=== PATIENT | female | born 1990 | race Caucasian/White ===

== ENCOUNTER 2016-07-13 12:43 | Emergency (ER) | payer BC ==
[~2016-07-13] VITALS: Ht 157.5 cm; Wt 69.7 kg
[~2016-07-13 12:43] MED LIST: DICY20TA10 PO; PRENTAB65 PO; ZNTT/150 PO
[2016-07-13 12:46] VITALS: TEMP 36.5; Ht 157.5 cm; Wt 69.7 kg
[2016-07-13] MEDS ORDERED: BCPILLS PO (12:57)
[2016-07-13] MEDS ORDERED: ONDANSETRON INJ 2 MG/ML 2 ML VIAL IV STA (13:06)
[2016-07-13] MEDS ORDERED: MoRPHine SULFATE 10 MG/ML CARP/VIAL IV STA (13:06)
[2016-07-13] MEDS ORDERED: SODIUM CHLORIDE 0.9% 1000ML 1,000 ML IV STA (13:06)
[2016-07-13] MEDS ORDERED: MoRPHine SULFATE 4 MG/ML 1 ML CARP\\VIAL ONE (13:10)
[2016-07-13] MEDS ORDERED: MoRPHine SULFATE 2 MG/ML CARP ONE (13:10)
[2016-07-13 13:20] LABS: BASO % 0.4 %; BASO ABS # 0.03 K/uL (0-0.2); COMPLETE YES; EOS % 1.7 %; HEMATOCRIT 42.2 % (37-47); IG% 0.2 %; LYMPH % 40.3 %; LYMPH ABS # 3.34 K/uL (1.2-3.4); MEAN CELL VOLUME 86.1 fL (80-100); MEAN CORPUSCULAR HEMOGLOBIN 29.4 pg (25-34); MEAN CORPUSCULAR HGB CONC 34.1 g/dl (32-36); MEAN PLATELET VOLUME 9.8 fL (7.4-10.4); MONO % 6.2 %; NEUT % 51.2 %; PLATELET COUNT 390 K/uL (130-400); WHITE BLOOD COUNT 8.28 K/uL (4.8-10.8)
[2016-07-13 13:28] LABS: BUN/CREATININE RATIO 11.7 (10-20); CALCIUM 9.4 mg/dl (8.5-10.1); CREATININE 0.92 mg/dl (0.60-1.20); POTASSIUM 3.7 mmol/L (3.5-5.1)
[2016-07-13 13:53] LABS: URINE APPEARANCE CLOUDY (CLEAR); URINE BILIRUBIN NEG (NEG); URINE COLOR YELLOW; URINE EPITHELIAL CELL AUTO >30 /lpf (0-5); URINE NITRITE NEG (NEG); URINE SPECIFIC GRAVITY 1.021 (1.000-1.030); UROBILINOGEN NEG (NEG); ZZUR CULT IF INDIC CLEAN CATCH YES
[2016-07-13 14:09] LABS: MANUAL MICROSCOPIC REQUIRED? NO; REVIEW REQ? YES; SULFASALICYLIC ACID NEG (NEG)
--- NOTE | 2016-07-13 14:10 | DIAGNOSTIC IMAGING REPORT ---
CT SCAN OF THE ABDOMEN AND PELVIS WITHOUT IV CONTRAST CLINICAL HISTORY: Left flank pain. Nausea. COMPARISON STUDY: Abdominal CT dated 11/29/2009. TECHNIQUE: CT scan of the abdomen and pelvis is performed from the lung bases to the proximal femora. Images are reviewed in the axial, sagittal, and coronal planes. IV contrast was not administered for this examination. Automated dose control exposure was utilized. CT DOSE: 354.98 mGy.cm FINDINGS: Lung bases: The heart is normal in size and without pericardial effusion. The lung bases are clear. Liver: The unenhanced liver is normal in size, contour, and attenuation. There is no intrahepatic biliary ductal dilatation. Gallbladder: Unremarkable. Spleen: Normal in size and attenuation. Pancreas: Unremarkable. Adrenal glands: Unremarkable. Kidneys: The unenhanced kidneys are normal in size. There is a 6 mm obstructing calculus at the left vesicoureteral junction seen on axial image #408. This causes mild to moderate left hydroureteronephrosis. No additional calculi are identified in either kidney. There is no right-sided hydronephrosis. There is no evidence of contour deforming renal mass lesion. Abdominal vasculature: The abdominal aorta is normal in course and caliber. Bowel: The small bowel and colon are normal in course and caliber. The appendix is partially imaged and grossly normal. Peritoneum: There is no intraperitoneal free air or abdominal ascites. There is a small fat-containing umbilical hernia. Lymphadenopathy: None. Pelvic viscera: The bladder, uterus, and adnexa are normal as visualized. There is trace free fluid in the cul-de-sac. Skeletal structures: No lytic or blastic lesions are seen. IMPRESSION: 1. There is a 6 mm obstructing calculus identified at the left vesicoureteral junction. This causes mild to moderate left hydroureteronephrosis. 2. No additional calculi are identified in either kidney. 3. There is trace and likely physiologic free fluid in the cul-de-sac. Electronically signed by: Mika Steele M.D. 07/13/2016 2:08 PM Dictated Date/Time: 07/13/2016 1:43 PM
[2016-07-13] MEDS ORDERED: TAMS0.4C38 PO (14:35)
[2016-07-13] MEDS ORDERED: HYDR-5688 PO (14:35)
--- NOTE | 2016-07-13 14:36 | EMERGENCY ROOM VISIT NOTE ---
History First contact with patient: 12:54 Chief Complaint: FLANK PAIN Stated Complaint: BAD PAIN ON L SIDE History of Present Illness The patient is a 26 year old female who presents to the Emergency Room with complaints of severe pain in her left side. She states the pain began suddenly approximately one and half hours ago. She reports the pain is in her left back and radiates into the left side. She reports associated nausea, but no vomiting. She has no abdominal pain. She has urinary urgency, but denies any blood in the urine or dysuria. The patient does have a history of kidney stones. She states she has not had a stone for 7 years. She does not have a local urologist. She rates her discomfort a 9/10. She is not taken anything for the pain. She denies any fevers/chills, chest pain or shortness of breath. She denies any changes in bowel movements. Review of Systems A complete 10-point Review of Systems was discussed with the patient, with pertinent positives and negatives listed in the History of Present Illness. All remaining Review of Systems questions can be considered negative unless otherwise specified. Past Medical/Surgical History Medical Problems: (1) heart deceleration (2) First trimester (3) Irregular uterine contractions (4) Kidney stone (5) LLQ abdominal pain (6) with 10 completed weeks gestation (7) with 34 completed weeks gestation (8) with 38 completed weeks gestation (9) with 41 completed weeks gestation (10) Supervision of other normal (11) Urinary tract infection symptoms Family History Patient reports no known family medical history. Social History Smoking Status: Never Smoker Alcohol Use: none Marital Status: in relationship Occupation Status: unemployed Current/Historical Medications Scheduled Control Pills ( Control Pills), 1 TAB PO DAILY Dicyclomine Hcl (Dicyclomine Hcl), 20 MG PO QID Ondasetron Odt (Zofran Odt), 4 MG SL Q6H Ranitidine (Zantac), 150 MG PO DAILY Tamsulosin Hcl (Flomax), 0.4 MG PO DAILY Scheduled PRN Hydrocodone/Acetaminophen 5MG/325MG (Derby 5MG/325MG), 1-2 TABLET PO Q4H PRN for Pain Allergies Coded Allergies: Amoxicillin (Verified Allergy, Intermediate, rash, 07/13/16) Aspartame (Verified Allergy, Intermediate, HIVES, 07/13/16) Guaifenesin (Verified Allergy, Intermediate, HIVES, 07/13/16) Penicillins (Verified Allergy, Unknown, 07/13/16) Physical Exam Vital Signs Date Time Temp Pulse Resp B/P Pulse Ox O2 Delivery O2 Flow Rate FiO2 07/13/16 15:15 63 15 111/64 99 07/13/16 14:18 56 14 103/73 100 Room Air 07/13/16 12:46 36.5 79 18 135/77 99 Room Air Physical Exam VITALS: Vitals are noted on the nurse's note and reviewed by myself. Vital signs stable. GENERAL: This is a 26-year-old female, in no acute distress, nondiaphoretic, well-developed well-nourished. SKIN: Capillary reflex less than 2 seconds. HEART: Regular rate and rhythm without murmurs gallops or rubs. LUNGS: Clear to auscultation bilaterally without wheezes, rales or rhonchi. ABDOMEN: Positive bowel sounds x 4. Soft, nontender to palpation. MUSCULOSKELETAL: Left CVA tenderness. NEURO: Patient was alert and oriented to person place and time. Medical Decision & Procedures ER Provider Diagnostic Interpretation: CT SCAN OF THE ABDOMEN AND PELVIS WITHOUT IV CONTRAST IMPRESSION: 1. There is a 6 mm obstructing calculus identified at the left vesicoureteral junction. This causes mild to moderate left hydroureteronephrosis. 2. No additional calculi are identified in either kidney. 3. There is trace and likely physiologic free fluid in the cul-de-sac. Laboratory Results 07/13/16 13:02 Red Blood Count 4.90, Mean Corpuscular Volume 86.1, Mean Corpuscular Hemoglobin 29.4, Mean Corpuscular Hemoglobin Concent 34.1, Mean Platelet Volume 9.8, Neutrophils (%) (Auto) 51.2, Lymphocytes (%) (Auto) 40.3, Monocytes (%) (Auto) 6.2, Eosinophils (%) (Auto) 1.7, Basophils (%) (Auto) 0.4, Neutrophils # (Auto) 4.24, Lymphocytes # (Auto) 3.34, Monocytes # (Auto) 0.51, Eosinophils # (Auto) 0.14, Basophils # (Auto) 0.03 07/13/16 13:02 Test 07/13/16 13:02 07/13/16 13:15 White Blood Count 8.28 K/uL (4.8-10.8) Red Blood Count 4.90 M/uL (4.2-5.4) Hemoglobin 14.4 g/dL (12.0-16.0) Hematocrit 42.2 % (37-47) Mean Corpuscular Volume 86.1 fL (80-100) Mean Corpuscular Hemoglobin 29.4 pg (25-34) Mean Corpuscular Hemoglobin Concent 34.1 g/dl (32-36) Platelet Count 390 K/uL (130-400) Mean Platelet Volume 9.8 fL (7.4-10.4) Neutrophils (%) (Auto) 51.2 % Lymphocytes (%) (Auto) 40.3 % Monocytes (%) (Auto) 6.2 % Eosinophils (%) (Auto) 1.7 % Basophils (%) (Auto) 0.4 % Neutrophils # (Auto) 4.24 K/uL (1.4-6.5) Lymphocytes # (Auto) 3.34 K/uL (1.2-3.4) Monocytes # (Auto) 0.51 K/uL (0.11-0.59) Eosinophils # (Auto) 0.14 K/uL (0-0.5) Basophils # (Auto) 0.03 K/uL (0-0.2) RDW Standard Deviation 40.9 fL (36.4-46.3) RDW Coefficient of Variation 12.9 % (11.5-14.5) Immature Granulocyte % (Auto) 0.2 % Immature Granulocyte # (Auto) 0.02 K/uL (0.00-0.02) Anion Gap 13.0 mmol/L (3-11) Est Creatinine Clear Calc Drug Dose 85.5 ml/min Estimated GFR () 100.3 Estimated GFR (Non- 86.5 BUN/Creatinine Ratio 11.7 (10-20) Calcium Level 9.4 mg/dl (8.5-10.1) Total Bilirubin 0.2 mg/dl (0.2-1) Aspartate Amino Transf (AST/SGOT) 33 U/L (15-37) Alanine Aminotransferase (ALT/SGPT) 65 U/L (12-78) Alkaline Phosphatase 72 U/L (45-117) Total Protein 7.5 gm/dl (6.4-8.2) Albumin 3.7 gm/dl (3.4-5.0) Globulin 3.8 gm/dl (2.5-4.0) Albumin/Globulin Ratio 1.0 (0.9-2) Urine Color YELLOW Urine Appearance CLOUDY (CLEAR) Urine pH 8.0 (4.5-7.5) Urine Specific Fouke 1.021 (1.000-1.030) Urine Protein NEG (NEG) Urine Glucose (UA) NEG (NEG) Urine Ketones NEG (NEG) Urine Occult Blood 3+ (NEG) Urine Nitrite NEG (NEG) Urine Bilirubin NEG (NEG) Urine Urobilinogen NEG (NEG) Urine Leukocyte Esterase SMALL (NEG) Urine WBC (Auto) 10-30 /hpf (0-5) Urine RBC (Auto) >30 /hpf (0-4) Urine Hyaline Casts (Auto) /lpf (0-5) Urine Epithelial Cells (Auto) >30 /lpf (0-5) Urine Bacteria (Auto) 1+ (NEG) Urine Pathogenic Casts /lpf (0) Urine Test NEG (NEG) Medications Administered Medications (Trade) Dose Ordered Sig/Ten Route Start Time Stop Time Status Last Admin Dose Admin Sodium Chloride (Nss 1000ml) 1,000 ml @ 999 mls/hr Q1H1M STAT IV 07/13/16 13:06 07/13/16 14:06 DC 07/13/16 13:16 999 MLS/HR Ondansetron HCl (Zofran Inj) 4 mg NOW STAT IV 07/13/16 13:06 07/13/16 13:08 DC 07/13/16 13:18 4 MG Morphine Sulfate (MoRPHine SULFATE INJ) 4 mg STK-MED ONCE .ROUTE 07/13/16 13:10 07/13/16 13:11 DC 07/13/16 13:19 4 MG Morphine Sulfate (MoRPHine SULFATE INJ) 2 mg STK-MED ONCE .ROUTE 07/13/16 13:10 07/13/16 13:12 DC 07/13/16 13:19 2 MG Medical Decision Differential diagnosis includes renal calculus, pyelonephritis, musculoskeletal pain, gastroenteritis, colitis, among others. The patient was evaluated as above. Labs were drawn and IV access was obtained. Imaging studies were performed and read by radiology as above. The patient was medicated with 6 mg morphine IV, 4 mg Zofran IV and 1 L normal saline solution. The patient was reassessed multiple times during their stay in the emergency department and remained in stable condition. The patient is a 26-year-old female who presents today complaining of left flank pain. Labs revealed no leukocytosis, anemia or concerning electrolyte abnormalities. CT showed a 6 mm obstructing left ureteral stone. Urinalysis showed the presence of blood. It appeared contaminated but will be sent for culture. The patient was reevaluated and felt much better after antiemetics and pain medication. I discussed options of care including discharge home or admission for pain control. The patient prefers to be discharged. She was given a urine strainer and urology referral. She was given prescriptions for Zofran, Derby and Flomax. She will return for worsening symptoms. Based on the patient's presentation, lab results, and imaging studies, I feel the patient is stable for outpatient treatment. Discharge instructions were reviewed with the patient. The patient verbalized understanding of my assessment and treatment plan and was discharged home in good condition. Impression Primary Impression: Left ureteral calculus Departure Information Dispostion Home / Self-Care Condition GOOD Prescriptions Ondasetron Odt (ZOFRAN ODT) 4 Mg Tab 4 MG SL Q6H for Nausea, #15 TAB Prov: Farnaz Randolph PA-C 07/13/16 Tamsulosin Hcl (FLOMAX) 0.4 Mg Cap 0.4 MG PO DAILY for 10 Days, #10 CAP Prov: Farnaz Randolph PA-C 07/13/16 Hydrocodone/Acetaminophen 5MG/325MG (Derby 5MG/325MG) Tab 1-2 TABLET PO Q4H Y for Pain, #24 TAB For Initial Treatment Prov: Farnaz Randolph PA-C 07/13/16 Referrals Regine Gonzalez M.D. (MEDICAL) (PCP) Erwin Vences MD Patient Instructions My [facility] Additional Instructions You have been treated in the Emergency Department today for a Kidney Stone ( Nephrolithiasis). You have received pain medicine in the emergency department which impairs your ability to operate a vehicle. It is illegal for you to drive after receiving these medicines. You have been prescribed Derby to be used for pain control. This is a narcotic medication. You cannot drive or consume alcohol while on this medicine. This medicine should only be used for pain that cannot be controlled with over-the- counter pain medicines. You have been prescribed Zofran to be used for any nausea or vomiting. Take as prescribed. You have been prescribed Flomax 0.4 mg to be taken ONCE daily. This medicine has been prescribed as it can help relax the smooth muscles of the urinary tract increasing transit time of the kidney stone. For pain control, you can use the following [id number] medicines (if >12 yo): - Regular strength (325mg/tab) Tylenol (acetaminophen) 2 tabs every 4-6 hours as needed. Do not exceed 12 tablets in a 24 hour period. Avoid taking more than 4 grams (4000 mg) of Tylenol per day. This includes any other sources of acetaminophen you may take on a regular basis. - Regular strength (200 mg/tab) Advil (ibuprofen) 1-2 tabs every 4-6 hours as needed. Do not exceed a dose of 3200 mg per day. You have been provided a strainer and specimen collection cup. You should strain your urine to collect any passed stones. Your stones can be placed into the specimen cup and taken to your Urologist for further evaluation. You have been provided the contact information for the on-call Urologist. You should contact the Urologist's office tomorrow to establish a follow-up appointment from today's Emergency Department visit. Return to the Emergency Department if your symptoms persist despite the treatment plan outlined above or if you develop the following symptoms: intractable pain, fever, chills, or large amounts of blood in your urine.
[2016-07-13] MEDS ORDERED: ONDA4TAB10 SL (14:38)
[2016-07-13 15:15] VITALS: BP 111/64; PULSE 63; O2SAT 99
== END 2016-07-13 15:15 | disposition home or self-care (01) ==
LOC: C.EDB 12:44
DX: N20.1 Calculus of ureter (principal); Z87.442 Personal history of urinary calculi; Z79.3 Long term (current) use of hormonal contraceptives; Z79.899 Other long term (current) drug therapy

== ENCOUNTER → 2016-08-30 | Outpatient (CLI) | payer BC ==
[~2016-08-30] MED LIST changes: +BCPILLS PO; +HYDR-5688 PO; +ONDA4TAB10 SL; -PRENTAB65 PO
--- NOTE | 2016-08-30 14:47 | DIAGNOSTIC IMAGING REPORT ---
KUB CLINICAL HISTORY: Nephrolithiasis. FINDINGS: 2 AP supine abdominal radiographs are correlated with abdominal CT dated 07/13/2016. There is a nonobstructed abdominal bowel gas pattern noting mild colonic fecal retention. There is no radiographic evidence of nephrolithiasis. The bony structures appear intact. IMPRESSION: There is no radiographic evidence of nephrolithiasis. Electronically signed by: Mika Steele M.D. 08/30/2016 2:45 PM Dictated Date/Time: 08/30/2016 2:45 PM
== END | disposition home or self-care (01) ==
LOC: C.RAD 13:20
PROVIDERS: ATTEND Nurse Practitioner Family
DX: N20.0 Calculus of kidney (principal)

== ENCOUNTER 2017-04-18 12:26 | Emergency (ER) | payer BC ==
[~2017-04-18] VITALS: Ht 157.5 cm; Wt 67.3 kg
[~2017-04-18 12:26] MED LIST changes: -BCPILLS PO; -DICY20TA10 PO; -HYDR-5688 PO; -ONDA4TAB10 SL
[2017-04-18 12:28] VITALS: TEMP 36.9; Ht 157.5 cm; Wt 67.3 kg
[2017-04-18] MEDS ORDERED: DICY20TA10 PO (12:39)
[2017-04-18] MEDS ORDERED: BCPILLS PO (12:57)
[2017-04-18] MEDS ORDERED: CLR10 PO (13:01)
[2017-04-18] MEDS ORDERED: ONDANSETRON INJ 2 MG/ML 2 ML VIAL IV STA (13:13)
[2017-04-18] MEDS ORDERED: MoRPHine SULFATE 10 MG/ML CARP/VIAL IV STA (13:13)
[2017-04-18] MEDS ORDERED: MoRPHine SULFATE 2 MG/ML CARP ONE (13:20)
[2017-04-18] MEDS ORDERED: MoRPHine SULFATE 4 MG/ML 1 ML CARP\\VIAL ONE (13:20)
[2017-04-18 13:48] LABS: BASO % 0.4 %; BASO ABS # 0.03 K/uL (0-0.2); COMPLETE YES; EOS % 2.6 %; HEMATOCRIT 43.7 % (37-47); IG% 0.1 %; LYMPH % 38.7 %; LYMPH ABS # 3.14 K/uL (1.2-3.4); MEAN CELL VOLUME 87.6 fL (80-100); MEAN CORPUSCULAR HEMOGLOBIN 30.5 pg (25-34); MEAN CORPUSCULAR HGB CONC 34.8 g/dl (32-36); MEAN PLATELET VOLUME 10.2 fL (7.4-10.4); MONO % 6.2 %; PLATELET COUNT 301 K/uL (130-400); RED BLOOD COUNT 4.99 M/uL (4.2-5.4); WHITE BLOOD COUNT 8.11 K/uL (4.8-10.8)
[2017-04-18 14:06] LABS: ALT/SGPT 27 U/L (12-78); AST/SGOT 14 U/L (15-37); BLOOD UREA NITROGEN 7 mg/dl (7-18); BUN/CREATININE RATIO 9.7 (10-20); CALCIUM 9.1 mg/dl (8.5-10.1); CARBON DIOXIDE 26 mmol/L (21-32); CHLORIDE 106 mmol/L (98-107); CREATININE 0.68 mg/dl (0.60-1.20); GLUCOSE 83 mg/dl (70-99); POTASSIUM 3.5 mmol/L (3.5-5.1); SODIUM 138 mmol/L (136-145)
[2017-04-18 14:09] LABS: ALKALINE PHOSPHATASE 73 U/L (45-117)
[2017-04-18 14:16] LABS: URINE APPEARANCE CLOUDY (CLEAR); URINE BILIRUBIN NEG (NEG); URINE COLOR YELLOW; URINE EPITHELIAL CELL AUTO >30 /lpf (0-5); URINE NITRITE POS (NEG); URINE PH 6.5 (4.5-7.5); URINE SPECIFIC GRAVITY 1.022 (1.000-1.030); UROBILINOGEN NEG (NEG); ZZUR CULT IF INDIC CLEAN CATCH YES
[2017-04-18 14:26] LABS: MANUAL MICROSCOPIC REQUIRED? NO; REVIEW REQ? YES
--- NOTE | 2017-04-18 15:16 | DIAGNOSTIC IMAGING REPORT ---
GALLBLADDER-ABD LIMITED HISTORY: 26 years-old Female right upper quadrant pain acute right upper quadrant abdominal pain COMPARISON: CT abdomen and pelvis 07/13/2016 TECHNIQUE: Multiple real-time sonographic images of the abdominal right upper quadrant were obtained assessing grayscale appearance and color flow FINDINGS: Imaged pancreas is unremarkable with distal body and tail obscured by bowel gas. Liver measures up to 17.3 cm in length. There is a focal round slightly hypoechoic lesion of the right hepatic lobe measuring up to 1.0 cm which is indeterminate. This is not definitely seen on comparison noncontrast CT studies. No associated internal vascularity within this lesion identified. No intrahepatic biliary ductal dilation. Common bile duct is normal, 0.3 cm. Gallbladder is unremarkable without cholelithiasis, gallbladder wall thickening or pericholecystic fluid collections. 2.3 cm cyst of the interpolar right kidney appears unremarkable and unchanged from comparison. No right-sided hydronephrosis. Previously described right-sided nephrolithiasis not definitely seen. IMPRESSION: 1. No sonographic evidence of cholelithiasis or acute cholecystitis. No biliary ductal dilation. 2. Nonspecific 1.0 cm slightly hypoechoic lesion of the right hepatic lobe. The above report was generated using voice recognition software. It may contain grammatical, syntax or spelling errors. Electronically signed by: Gato Holden M.D. 04/18/2017 3:14 PM Dictated Date/Time: 04/18/2017 3:09 PM
--- NOTE | 2017-04-18 16:11 | DIAGNOSTIC IMAGING REPORT ---
CT SCAN OF THE ABDOMEN AND PELVIS WITHOUT IV CONTRAST CLINICAL HISTORY: Right flank pain. COMPARISON STUDY: Abdominal CT dated 07/13/2016. TECHNIQUE: CT scan of the abdomen and pelvis is performed from the lung bases to the proximal femora. Images are reviewed in the axial, sagittal, and coronal planes. IV contrast was not administered for this examination. A dose lowering technique was utilized adhering to the principles of ALARA. CT DOSE: 741.15 mGy.cm FINDINGS: Lung bases: The heart is normal in size and without pericardial effusion. There are trace pleural effusions. The lung bases are otherwise clear. Liver: The unenhanced liver is mildly enlarged measuring 18.2 cm in length. The liver demonstrates diminished attenuation consistent with mild hepatic steatosis. Fatty sparing is seen adjacent to gallbladder fossa. There is no intrahepatic biliary ductal dilatation. Gallbladder: Unremarkable. Spleen: Normal in size and attenuation. Pancreas: Unremarkable. Adrenal glands: Unremarkable. Kidneys: The unenhanced kidneys are normal in size and without hydronephrosis. There are no renal calculi identified. A 2.3 cm cyst is noted in the right kidney. Abdominal vasculature: The abdominal aorta is normal in course and caliber. Bowel: The small bowel and colon are normal in course and caliber. The appendix is well-visualized and normal. Peritoneum: There is no intraperitoneal free air or abdominal ascites. There is a small fat-containing umbilical hernia. Lymphadenopathy: None. Pelvic viscera: The bladder, uterus, and adnexa are normal as visualized. There are bilateral ovarian follicles. A dominant follicle in the right ovary measures up to 2.7 cm. Trace free fluid is noted in the cul-de-sac. Skeletal structures: There is a benign-appearing lucent lesion within the right posterolateral 10th rib. There is associated pathologic fracture seen on axial image #70. No similar-appearing bony lesions are seen. IMPRESSION: 1. There is a benign-appearing slightly expansile lucent lesion within the right posterolateral 10th rib. This represent a cyst or enchondroma, and there is associated pathologic rib fracture. 2. No additional similar-appearing bony lesions are identified. 3. There are no acute infectious or inflammatory findings in the abdomen or pelvis. 4. Hepatomegaly and mild hepatic steatosis. 5. Trace free fluid in the cul-de-sac is likely within physiologic limits. Electronically signed by: Mika Steele M.D. 04/18/2017 4:09 PM Dictated Date/Time: 04/18/2017 3:55 PM
[2017-04-18] MEDS ORDERED: HYDR-5688 PO (16:22)
[2017-04-18] MEDS ORDERED: NITR-5 PO (16:22)
--- NOTE | 2017-04-18 16:23 | EMERGENCY ROOM VISIT NOTE ---
History First contact with patient: 13:01 Chief Complaint: RIB PAIN Stated Complaint: PAIN ON RIGHT SIDE/RIBS History of Present Illness The patient is a 26 year old female who presents to the Emergency Room with complaints of right lower rib pain for 1 week. The patient denies any injury to the area. The patient denies any recent respiratory symptoms of cough, head congestion, fever. The patient states she has increased pain with movement. She denies any nausea vomiting or diarrhea. The patient denies any urinary symptoms of frequency, urgency, dysuria. The patient states that she took a hydrocodone this morning that she had from a prior kidney stone and made her pain go from a 9 to a 5. The patient last ate at 10 AM this morning. The patient denies any chest pain, shortness of breath. The patient denies any rashes, recent travel, recent leg pain. The patient denies tobacco use. She is on control pills. Review of Systems 10 system review was performed and was negative unless stated otherwise history of present illness. Past Medical/Surgical History Medical Problems: (1) heart deceleration (2) First trimester (3) Irregular uterine contractions (4) Kidney stone (5) LLQ abdominal pain (6) with 10 completed weeks gestation (7) with 34 completed weeks gestation (8) with 38 completed weeks gestation (9) with 41 completed weeks gestation (10) Supervision of other normal (11) Urinary tract infection symptoms Family History Patient reports no known family medical history. Social History Smoking Status: Never Smoker Alcohol Use: none Marital Status: in relationship Occupation Status: unemployed Current/Historical Medications Scheduled Control Pills ( Control Pills), 1 TAB PO DAILY Dicyclomine Hcl (Dicyclomine Hcl), 20 MG PO QID Loratadine (Claritin), 10 MG PO DAILY Physical Exam Vital Signs Date Time Temp Pulse Resp B/P (MAP) Pulse Ox O2 Delivery O2 Flow Rate FiO2 04/18/17 16:03 72 18 117/66 99 04/18/17 15:08 75 115/73 04/18/17 14:29 88 17 139/65 98 04/18/17 12:28 36.9 92 17 155/98 98 Room Air Physical Exam GENERAL: MOUTH: Mucosa is slightly dry. NECK: Supple, no lymphadenopathy noted. No carotid bruits noted. GEN.: 26-year-old white female appears in no acute distress. MENTAL Status: Alert and oriented 3. MOUTH: Mucosa is moist LUNGS: Clear auscultation without wheezes rales or rhonchi. CARDIAC: Regular rate and rhythm without murmur. Pulses is full and equal throughout. CHEST WALL: No gross bony deformity noted. No rashes noted, no erythema or edema noted. The patient is tender to palpation over the lateral right lower ribs otherwise nontender to palpation . BACK: No CVA tenderness noted. ABDOMEN: Positive bowel sounds all 4 quadrants. Soft, patient has severe tenderness with guarding in the right upper quadrant otherwise nontender to palpation without organomegaly or masses. EXTREMITIES: No cyanosis or edema noted. Nontender to palpation. Medical Decision & Procedures ER Provider Diagnostic Interpretation: GALLBLADDER-ABD LIMITED HISTORY: 26 years-old Female right upper quadrant pain acute right upper quadrant abdominal pain COMPARISON: CT abdomen and pelvis 07/13/2016 TECHNIQUE: Multiple real-time sonographic images of the abdominal right upper quadrant were obtained assessing grayscale appearance and color flow FINDINGS: Imaged pancreas is unremarkable with distal body and tail obscured by bowel gas. Liver measures up to 17.3 cm in length. There is a focal round slightly hypoechoic lesion of the right hepatic lobe measuring up to 1.0 cm which is indeterminate. This is not definitely seen on comparison noncontrast CT studies. No associated internal vascularity within this lesion identified. No intrahepatic biliary ductal dilation. Common bile duct is normal, 0.3 cm. Gallbladder is unremarkable without cholelithiasis, gallbladder wall thickening or pericholecystic fluid collections. 2.3 cm cyst of the interpolar right kidney appears unremarkable and unchanged from comparison. No right-sided hydronephrosis. Previously described right-sided nephrolithiasis not definitely seen. IMPRESSION: 1. No sonographic evidence of cholelithiasis or acute cholecystitis. No biliary ductal dilation. 2. Nonspecific 1.0 cm slightly hypoechoic lesion of the right hepatic lobe. The above report was generated using voice recognition software. It may contain grammatical, syntax or spelling errors. Electronically signed by: Gato Holden M.D. 04/18/2017 3:14 PM Dictated Date/Time: 04/18/2017 3:[address] SCAN OF THE ABDOMEN AND PELVIS WITHOUT IV CONTRAST CLINICAL HISTORY: Right flank pain. COMPARISON STUDY: Abdominal CT dated 07/13/2016. TECHNIQUE: CT scan of the abdomen and pelvis is performed from the lung bases to the proximal femora. Images are reviewed in the axial, sagittal, and coronal planes. IV contrast was not administered for this examination. A dose lowering technique was utilized adhering to the principles of ALARA. CT DOSE: 741.15 mGy.cm FINDINGS: Lung bases: The heart is normal in size and without pericardial effusion. There are trace pleural effusions. The lung bases are otherwise clear. Liver: The unenhanced liver is mildly enlarged measuring 18.2 cm in length. The liver demonstrates diminished attenuation consistent with mild hepatic steatosis. Fatty sparing is seen adjacent to gallbladder fossa. There is no intrahepatic biliary ductal dilatation. Gallbladder: Unremarkable. Spleen: Normal in size and attenuation. Pancreas: Unremarkable. Adrenal glands: Unremarkable. Kidneys: The unenhanced kidneys are normal in size and without hydronephrosis. There are no renal calculi identified. A 2.3 cm cyst is noted in the right kidney. Abdominal vasculature: The abdominal aorta is normal in course and caliber. Bowel: The small bowel and colon are normal in course and caliber. The appendix is well-visualized and normal. Peritoneum: There is no intraperitoneal free air or abdominal ascites. There is a small fat-containing umbilical hernia. Lymphadenopathy: None. Pelvic viscera: The bladder, uterus, and adnexa are normal as visualized. There are bilateral ovarian follicles. A dominant follicle in the right ovary measures up to 2.7 cm. Trace free fluid is noted in the cul-de-sac. Skeletal structures: There is a benign-appearing lucent lesion within the right posterolateral 10th rib. There is associated pathologic fracture seen on axial image #70. No similar-appearing bony lesions are seen. IMPRESSION: 1. There is a benign-appearing slightly expansile lucent lesion within the right posterolateral 10th rib. This represent a cyst or enchondroma, and there is associated pathologic rib fracture. 2. No additional similar-appearing bony lesions are identified. 3. There are no acute infectious or inflammatory findings in the abdomen or pelvis. 4. Hepatomegaly and mild hepatic steatosis. 5. Trace free fluid in the cul-de-sac is likely within physiologic limits. Electronically signed by: Mika Steele M.D. 04/18/2017 4:09 PM Laboratory Results 04/18/17 13:25 Red Blood Count 4.99, Mean Corpuscular Volume 87.6, Mean Corpuscular Hemoglobin 30.5, Mean Corpuscular Hemoglobin Concent 34.8, Mean Platelet Volume 10.2, Neutrophils (%) (Auto) 52.0, Lymphocytes (%) (Auto) 38.7, Monocytes (%) (Auto) 6.2, Eosinophils (%) (Auto) 2.6, Basophils (%) (Auto) 0.4, Neutrophils # (Auto) 4.22, Lymphocytes # (Auto) 3.14, Monocytes # (Auto) 0.50, Eosinophils # (Auto) 0.21, Basophils # (Auto) 0.03 04/18/17 13:25 Test 04/18/17 13:25 White Blood Count 8.11 K/uL (4.8-10.8) Red Blood Count 4.99 M/uL (4.2-5.4) Hemoglobin 15.2 g/dL (12.0-16.0) Hematocrit 43.7 % (37-47) Mean Corpuscular Volume 87.6 fL (80-100) Mean Corpuscular Hemoglobin 30.5 pg (25-34) Mean Corpuscular Hemoglobin Concent 34.8 g/dl (32-36) Platelet Count 301 K/uL (130-400) Mean Platelet Volume 10.2 fL (7.4-10.4) Neutrophils (%) (Auto) 52.0 % Lymphocytes (%) (Auto) 38.7 % Monocytes (%) (Auto) 6.2 % Eosinophils (%) (Auto) 2.6 % Basophils (%) (Auto) 0.4 % Neutrophils # (Auto) 4.22 K/uL (1.4-6.5) Lymphocytes # (Auto) 3.14 K/uL (1.2-3.4) Monocytes # (Auto) 0.50 K/uL (0.11-0.59) Eosinophils # (Auto) 0.21 K/uL (0-0.5) Basophils # (Auto) 0.03 K/uL (0-0.2) RDW Standard Deviation 39.4 fL (36.4-46.3) RDW Coefficient of Variation 12.3 % (11.5-14.5) Immature Granulocyte % (Auto) 0.1 % Immature Granulocyte # (Auto) 0.01 K/uL (0.00-0.02) Urine Color YELLOW Urine Appearance CLOUDY (CLEAR) Urine pH 6.5 (4.5-7.5) Urine Specific [place] 1.022 (1.000-1.030) Urine Protein NEG (NEG) Urine Glucose (UA) NEG (NEG) Urine Ketones NEG (NEG) Urine Occult Blood NEG (NEG) Urine Nitrite POS (NEG) Urine Bilirubin NEG (NEG) Urine Urobilinogen NEG (NEG) Urine Leukocyte Esterase MODERATE (NEG) Urine WBC (Auto) 10-30 /hpf (0-5) Urine RBC (Auto) 0-4 /hpf (0-4) Urine Hyaline Casts (Auto) 1-5 /lpf (0-5) Urine Epithelial Cells (Auto) >30 /lpf (0-5) Urine Bacteria (Auto) 4+ (NEG) Urine Crystals CALCIUM OXALATE (NONE Urine Pathogenic Casts /lpf (0) Anion Gap 6.0 mmol/L (3-11) Est Creatinine Clear Calc Drug Dose 113.8 ml/min Estimated GFR () 140.9 Estimated GFR (Non- 121.6 BUN/Creatinine Ratio 9.7 (10-20) Calcium Level 9.1 mg/dl (8.5-10.1) Total Bilirubin 0.2 mg/dl (0.2-1) Direct Bilirubin < 0.1 mg/dl (0-0.2) Aspartate Amino Transf (AST/SGOT) 14 U/L (15-37) Alanine Aminotransferase (ALT/SGPT) 27 U/L (12-78) Alkaline Phosphatase 73 U/L (45-117) Total Protein 7.8 gm/dl (6.4-8.2) Albumin 3.5 gm/dl (3.4-5.0) Lipase 180 U/L (73-393) Medications Administered Medications (Trade) Dose Ordered Sig/Ten Route Start Time Stop Time Status Last Admin Dose Admin Ondansetron HCl (Zofran Inj) 4 mg NOW STAT IV 04/18/17 13:13 04/18/17 13:16 DC 04/18/17 13:35 4 MG Morphine Sulfate (MoRPHine SULFATE INJ) 2 mg STK-MED ONCE .ROUTE 04/18/17 13:20 04/18/17 13:21 DC 04/18/17 13:36 2 MG Morphine Sulfate (MoRPHine SULFATE INJ) 4 mg STK-MED ONCE .ROUTE 04/18/17 13:20 04/18/17 13:21 DC 04/18/17 13:36 4 MG ED Course The patient was evaluated. IV access was obtained. CBC and differential, renal profile, LFTs and lipase levels were ordered. Urinalysis was ordered The patient was given morphine 6 mg IV and Zofran 4 mg IV push. Ultrasound of the gallbladder was ordered and interpreted by the radiologist as above without any acute findings. Labs are reviewed and were unremarkable. Urinalysis revealed positive nitrates positive leukocytes and bacteria. There is also calcium oxalate therefore a CT stone study was ordered. I spoke with Dr Steele about the CT findings. There were no evidence of stones but there was a lucency consistent with a benign cyst in the right 10th rib that fractured. The patient was informed of the findings. The patient was given Macrobid 100 mg by mouth while in the ER. The patient was discharged home in stable condition. Medical Decision Differential diagnosis include rib fracture, costochondritis, muscular strain, acute cholecystitis, herpes zoster, rib contusion, ureteral calculi, UTI [place] Drug Monitoring Program Search Results: patient reviewed within database Medication Reconcilliation Current Medication List: was personally reviewed by or Blood Pressure Screening Patient's blood pressure: Normal blood pressure Impression Primary Impression: Right rib fracture Additional Impression: UTI (urinary tract infection) Departure Information Dispostion Home / Self-Care Condition GOOD Prescriptions Nitrofurantoin Monohyd Macrocr (Macrobid) 100 Mg Cap 100 MG PO BID for 7 Days, #14 CAP Prov: Liana Villalobos PA-C 04/18/17 Hydrocodone/Acetaminophen 5MG/325MG (Republic 5MG/325MG) Tab 1-2 TABLET PO Q6 Y for Pain, #20 TAB For Initial Treatment Prov: Liana Villalobos PA-C 04/18/17 Referrals Regine Gonzalez M.D. (MEDICAL) (PCP) Forms HOME CARE DOCUMENTATION FORM, IMPORTANT VISIT INFORMATION, WORK / SCHOOL INSTRUCTIONS Patient Instructions ED Fx Rib, ED UTI Cystitis Female, My [facility] Additional Instructions Ibuprofen 600 mg every 6 hours with food for pain. Take Republic as needed for more severe pain. Do not drive while taking the Republic. Avoid any strenuous exercise which her upper body until symptoms have resolved. For UTI push fluids. Take Macrobid as prescribed. Call in 36 hours for urine culture results. Follow-up with your family doctor early next week for reevaluation. If symptoms worsen in the interim, return to ER. Problem Qualifiers Primary Impression: Right rib fracture Encounter type: initial encounter Rib fracture type: single rib Fracture type: closed Qualified Codes: S22.31XA - Fracture of one rib, right side, initial encounter for closed fracture Additional Impression: UTI (urinary tract infection) Urinary tract infection type: acute cystitis Hematuria presence: with hematuria Qualified Codes: N30.01 - Acute cystitis with hematuria
[2017-04-18] MEDS ORDERED: NITROFURANTOIN MONOHYDRATE 100 MG CAP PO ONE (16:30)
[2017-04-18 16:46] VITALS: BP 119/60; PULSE 73; O2SAT 97
== END 2017-04-18 16:48 | disposition home or self-care (01) ==
LOC: C.EDB 12:27 → C.EDA 16:48
DX: S22.31XA Fracture of one rib, right side, initial encounter for closed fracture (principal); N30.01 Acute cystitis with hematuria; X58.XXXA Exposure to other specified factors, initial encounter

== ENCOUNTER 2021-07-19 06:05 | Inpatient (IN) ==
[2021-07-19] MEDS ORDERED: OXYTOCIN 30 UNITS/500 ML BAG IV PRN ×4 (07:35→13:58)
[2021-07-19] MEDS: LACTATED RINGER'S 1,000 ML IV PRN ×3 (08:00→10:17)
[2021-07-19 08:03] LABS: Hematocrit (blood only) 38.8 % (37-47); Hemoglobin 12.5 g/dL (12.0-16.0); Mean Corpuscular Hemoglobin 28.7 pg (25-34); Mean Corpuscular Hgb Conc 32.2 g/dL (32-36); Mean Corpuscular Volume 89.2 fL (80-100); Mean Platelet Volume 9.8 fL (7.4-10.4); Platelet Count 261 K/uL (130-400); RDW Coefficient of Variation 13.3 % (11.5-14.5); RDW Standard Deviation 43.8 fL (36.4-46.3); Red Blood Count 4.35 M/uL (4.2-5.4); White Blood Count 8.04 K/uL (4.8-10.8)
[2021-07-19] MEDS ORDERED: SODIUM CHLORIDE 0.9% INJ 10 ML VIAL ONE (08:07)
[2021-07-19] MEDS ORDERED: BUPIVACAINE 0.25% 30 ML VIAL ONE (08:07)
[2021-07-19] MEDS ORDERED: fentaNYL citrate 100 MCG/2 ML VIAL ONE (08:07)
[2021-07-19] MEDS ORDERED: fentaNYL 2MCG/ML ROPIVACAINE 1.25MG/ML 100 ML BAG EPI ONE (08:07)
[2021-07-19] MEDS ORDERED: ePHEDrine sulfate 50 MG/ML AMP ONE (08:07)
--- NOTE | 2021-07-19 08:51 | History & Physical Report ---
Date of Service July 19, 2021 Assessment & Plan (1) Gestational diabetes mellitus (GDM) in third trimester: (2) 40 weeks gestation of : (3) SARS-CoV-2 positive: Plan: admit for early labor. Tested covid positive. Is relatively asymptomatic--scratchy throat, congested. Will move to negative pressure room. Plan epidural and then arom. anticipate . fetus has occasional variable but overall category one. Admission and Anticipated Discharge Date Admission Date: July 19, 2021 History of Present Illness Chief Complaint: contractions Primary Care Provider: Erica Power DO Patient is a 31yowf with iup at 40 5/7 weeks who was scheduled for induction today who presents with increasing contractions. notes no lof/vb. +fm. Had favorable cervix yesterday. complicated by GDM that has been well controlled. Patient notes to me yesterday in the office that she has "allergies" ASCUS Pap/neg hrhpv @ NOB visit. GDM w/28wk glucola *Begin monthly AC Us's IOL 07/19/21- postdates OB Labs: Blood Type B Positive 12/07/20 Antibody Screen NEGATIVE 12/07/20 Hemoglobin 12.8 g/dL (12.0-16.0) 04/21/21 Hematocrit 37.9 % (37-47) 04/21/21 Mean Corpuscular Volume 86.3 fL (80-100) 01/25/21 Platelet Count 200 K/uL (130-400) 01/25/21 Rubella IgG Antibody Immune (Immune) 12/07/20 Rapid Plasma Reagin Nonreactive (Nonreactive) 12/07/20 Hepatitis B Surface Antigen Neg (Neg) 12/07/20 HIV (1&2) Ab and P24 Ag, 4th Gener Neg (Neg) 12/07/20 Glucose 1 Hour 50 gm Load 152 mg/dl (70-130) H 04/21/21 OB Optional Labs: Chlamydia trachomatis RNA NOT DETECTED (NOT DETECTED) 12/07/20 Neisseria gonorrhoeae RNA NOT DETECTED (NOT DETECTED) 12/07/20 low risk panorama neg cf/sma gbs neg Allergies Allergy/AdvReac Type Severity Reaction Status Date / Time aspartame Allergy Intermediate HIVES Verified 07/19/21 06:20 guaifenesin Allergy Intermediate HIVES Verified 07/19/21 06:20 latex AdvReac Intermediate Rash Verified 07/19/21 06:20 Home Medications Medication Instructions Recorded Confirmed Type breast pump #1 ea 04/21/21 07/18/21 Rx dicyclomine 10 mg capsule 10 mg PO DAILY 06/08/21 07/19/21 History loratadine 10 mg tablet (Claritin) 10 mg PO DAILY 06/08/21 07/19/21 History vit no.95-ferrous 1 tab PO DAILY 06/08/21 07/19/21 History fumarate 28 mg-folic acid 800 mcg tablet () zinc 1 tab PO PRN 07/19/21 History Patient History Medical History History of chicken pox History of kidney problems Kidney stones Seasonal allergies Surgical History No significant past surgical history Family History Grandmother (Paternal) Ovarian cancer Aunt Breast cancer Mother Hypertension Denies family history of Colorectal cancer Social History Smoking Status: Never smoker Second Hand Exposure: No; Hx Alcohol Use: No Hx Substance Use: No Preferred Language: Malay Music Therapist Required: No Beliefs That Will Affect Care: None marital status: marital status details: Stefan Thompson ([phone] Current Living Situation: Spouse and Family Current Living Situation Comment: lives with spouse, son, father, cats-spouse changing litter current occupational status: unemployed Feels Safe at Home: Yes Safety Concerns: Feels Safe At This Time OB History Del. Date GA wks Lbr Lgth wt Sex Type del Anes Place Del Prov ? Comment 05/17/16 41 9 7-15 M Epid ural [facility] Dr. Schaefer No [employer] History noncontributory Physical Exam Constitutional: WD/WN, vitals as above Cardiovascular: Extremities: no calf tenderness and no edema Gastrointestinal (Abdomen): soft, nt, gravid Psychiatric: A+Ox3, euthymic affect Genitourinary: cx--3/70/-2 toco--q3-6min efm--120s with mod variabiltiy, accels to 150s, rare variable Results & Data ([facility]) Vital Signs (Past 12 Hours) Vital Signs Temp Pulse Resp BP Pulse Ox 07/19/21 08:44 58 L 99 07/19/21 08:39 67 98 07/19/21 08:34 74 97 07/19/21 08:29 78 97 07/19/21 08:24 82 98 07/19/21 08:19 75 98 07/19/21 08:14 77 97 07/19/21 08:09 73 98 07/19/21 08:04 69 99 07/19/21 07:59 86 99 07/19/21 07:17 37.0 C 80 20 132/87 07/19/21 06:30 36.8 C 76 18 127/80 07/19/21 06:16 76 127/80 Coding Level of Care Code None Diagnoses Gestational diabetes mellitus (GDM) in third trimester O24.419 40 weeks gestation of Z3A.40 SARS-CoV-2 positive U07.1
[2021-07-19] MEDS ORDERED: ePHEDrine sulfate 50 MG/ML AMP IV PRN (08:53)
[2021-07-19] MEDS ORDERED: NALOXONE HCL 1 MG in SODIUM CHLORIDE 0.9% 1000ML 1,000 ML IV PRN (08:53)
[2021-07-19] MEDS ORDERED: NALOXONE HCL 0.4 MG/1 ML VIAL/CARP IV PRN (08:53)
[2021-07-19] MEDS ORDERED: fentaNYL 2MCG/ML ROPIVACAINE 1.25MG/ML 100 ML BAG EPI PRN (08:53)
[2021-07-19] MEDS ORDERED: NALBUPHINE HCL INJ 10 MG/ML AMP IV PRN (08:53)
[2021-07-19] MEDS ORDERED: diphenhydrAMINE 50 MG/ML VIAL IV PRN (08:53)
--- NOTE | 2021-07-19 08:53 | Anesthesiology Consultation ---
Date of Service July 19, 2021 Assessment & Plan (1) Encounter for pre-operative examination: Chart Review Chart Review: Acceptable Risk for Surgery and Patient NOT seen in Pre Admission Testing Consults Requested none Additional Notes COVID + History Height/Weight Height: 5 ft 2 in Weight: 73.936 kg Allergies Allergy/AdvReac Type Severity Reaction Status Date / Time aspartame Allergy Intermediate HIVES Verified 07/19/21 06:20 guaifenesin Allergy Intermediate HIVES Verified 07/19/21 06:20 latex AdvReac Intermediate Rash Verified 07/19/21 06:20 Medications Home Medications Medication Instructions Recorded Confirmed Last Taken breast pump #1 ea 04/21/21 07/18/21 Unknown dicyclomine 10 mg capsule 10 mg PO DAILY 06/08/21 07/19/21 07/19/21 05:30 loratadine 10 mg tablet (Claritin) 10 mg PO DAILY 06/08/21 07/19/21 07/19/21 05:00 vit no.95-ferrous 1 tab PO DAILY 06/08/21 07/19/21 07/19/21 05:30 fumarate 28 mg-folic acid 800 mcg tablet () zinc 1 tab PO PRN 07/19/21 07/19/21 05:30 Active Medications Generic Name Dose Route Start Last Admin Trade Name Freq PRN Reason Stop Dose Admin Lactated Ringer's 1,000 mls @ 125 mls/hr 07/19/21 07:35 07/19/21 08:00 Lr IV 07/21/21 07:34 999 mls/hr .Q8H PRN Administration L&D Protocol Protocol Past Medical History Medical History History of chicken pox History of kidney problems Kidney stones Seasonal allergies Past Family History Family History Grandmother (Paternal) Ovarian cancer Aunt Breast cancer Mother Hypertension Denies family history of Colorectal cancer Past Surgical History Surgical History No significant past surgical history Social History Smoking Status: Never smoker Hx Alcohol Use: No Hx Substance Use: No Physical Exam Vital Signs Last Vital Signs Temp 98.6 F 07/19/21 07:17 Pulse 74 07/19/21 08:49 Resp 20 07/19/21 07:17 BP 132/87 07/19/21 07:17 Pulse Ox 98 07/19/21 08:49 Testing Laboratory Results 07/19/21 07:47 07/19/21 07:51 POC Glucose 92
--- NOTE | 2021-07-19 11:26 | Labor Progress Brief Note ---
Date of Service July 19, 2021 Subjective comfortable with epidural Assessment & Plan (1) SARS-CoV-2 positive: (2) 40 weeks gestation of : Plan: continue current plan. monitor fetus closely. pit if needed. anticipate . fetus overall reassuring. Admission and Anticipated Discharge Date Admission Date: July 19, 2021 Physical Exam Physical Exam: cx--4-5/90/-2 arom--clear toco--q2-5min efm--120s with mod variaibliy, accels present, with a rare variable Results & Data ([facility]) Vital Signs (Past 12 Hours) Vital Signs Temp Pulse Resp BP Pulse Ox 07/19/21 11:19 90 120/74 100 07/19/21 11:14 75 133/73 99 07/19/21 11:10 79 93 07/19/21 11:09 74 127/77 97 07/19/21 11:05 67 132/76 07/19/21 11:04 69 100 07/19/21 11:00 67 129/81 07/19/21 10:59 69 100 07/19/21 10:54 65 100 07/19/21 10:53 62 18 106/59 L 07/19/21 10:49 75 103/59 L 100 07/19/21 10:44 67 18 103/60 100 07/19/21 10:39 72 100 07/19/21 10:38 60 113/65 07/19/21 10:34 76 99 07/19/21 10:33 61 111/62 07/19/21 10:29 62 100 07/19/21 10:28 61 108/60 07/19/21 10:24 76 100 07/19/21 10:23 67 108/61 07/19/21 10:19 79 100 07/19/21 10:17 67 113/60 07/19/21 10:15 75 113/59 L 07/19/21 10:14 72 99 07/19/21 10:13 73 110/55 L 07/19/21 10:11 75 105/58 L 07/19/21 10:09 66 110/64 100 07/19/21 10:07 67 116/61 07/19/21 10:06 78 110/57 L 07/19/21 10:04 80 100 07/19/21 10:03 66 138/74 07/19/21 10:02 81 145/76 H 07/19/21 09:59 87 100 07/19/21 09:54 89 92 07/19/21 09:53 36.8 C 74 18 148/80 H 07/19/21 09:47 89 100 07/19/21 09:42 60 100 07/19/21 09:37 91 H 100 07/19/21 09:32 61 100 07/19/21 09:04 73 100 07/19/21 08:59 73 99 07/19/21 08:54 70 99 07/19/21 08:49 74 98 07/19/21 08:44 58 L 99 07/19/21 08:39 67 98 07/19/21 08:34 74 97 07/19/21 08:29 78 97 07/19/21 08:24 82 98 07/19/21 08:19 75 98 07/19/21 08:14 77 97 07/19/21 08:09 73 98 07/19/21 08:04 69 99 07/19/21 07:59 86 99 07/19/21 07:17 37.0 C 80 20 132/87 07/19/21 06:30 36.8 C 76 18 127/80 07/19/21 06:16 76 127/80 Coding Level of Care Code None Diagnoses SARS-CoV-2 positive U07.1 40 weeks gestation of Z3A.40
[2021-07-19] MEDS ORDERED: oxyCODONE/ACETAMINOPHEN 5mg/325mg TAB PO PRN (13:58)
[2021-07-19] MEDS ORDERED: SUPERCREAM 0.870% 15 GM JAR EXT PRN (13:58)
[2021-07-19] MEDS ORDERED: DIPHTHERIA/TETANUS/PERTUSSIS 0.5 ML SYR/VIAL IM ONE (13:58)
[2021-07-19] MEDS ORDERED: ACETAMINOPHEN 325 MG TAB PO PRN (13:58)
[2021-07-19] MEDS ORDERED: HYDROCORTISONE ACETATE 25 MG SUPP PR PRN (13:58)
[2021-07-19] MEDS ORDERED: bisacodyL 10 MG SUPP PR PRN (13:58)
[2021-07-19] MEDS ORDERED: BENZOCAINE 20% AER SPR 82.5 GM CAN EXT PRN (13:58)
--- NOTE | 2021-07-19 14:04 | Delivery Summary ---
Vaginal Delivery Summary Date of Service July 19, 2021 Vaginal Delivery Summary (right labial laceration and repair) Pre-operative Diagnosis: at 40 5/7 weeks A1gdm covid + Post-operative Diagnosis: same Procedure: epidural arom pitocin augmentation repair of right labial laceration EBL: 300cc Anesthesia: epidural Procedure: The patient presented to labor and delivery in early active labor on the am she was scheduled for induction. She tested covid + and moved to the negative pressure room. The underwent an epidural, arom, and pitocin augmentation. The patient pushed for 3 contractions to deliver a viable female in adeel position. The nose and mouth were bulb suctioned on the perineum and the rest of the infant was then delivered without difficulty. The baby was vigorous. The nose and mouth were again bulb suctioned and the infant was placed in the maternal abdomen for drying and attention. Cord was clamped and cut at one minute of life. Cord blood and segment obtained. Placenta delivered spontaneous, intact with a three vessel cord. Cervix/sulci/rectum/perineum were intact. A right labial laceration was repaired in the normal standard fashion. Hemostasis obtained with dilute pitocin and fundal massage. Apgars were pending. Mother and baby doing well at the end of the delivery. [facility] Vaginal Delivery Charge Delivery Type Details: (right labial laceration and repair)
--- NOTE | 2021-07-19 14:35 | Anesthesia Procedure Note ---
Date of Service July 19, 2021 Anesthesia Post Epidural Note Vital Signs Vital Signs: Temp Pulse Resp BP Pulse Ox 98.1 F 65 20 125/68 95 07/19/21 12:56 07/19/21 14:21 07/19/21 14:15 07/19/21 14:35 07/19/21 13:29 Notes Mental Status: alert / awake / arousable and participated in evaluation Nausea / Vomiting: adequately controlled Pain: adequately controlled Airway Patency, RR, SpO2: stable & adequate BP & HR: stable & adequate Hydration State: stable & adequate Neuraxial Anesthesia: was administered and sensory block is resolving Anesthetic Complications: no major complications apparent and Pt Satisfied with anesthetic care Epidural: Removed without complications and With tip intact
[2021-07-19] MEDS: IBUPROFEN 600 MG TAB PO PRN ×2 (16:31→21:35)
[2021-07-19] MEDS: DOCUSATE SODIUM 100 MG CAP PO SCH (21:35)
[2021-07-20] MEDS: IBUPROFEN 600 MG TAB PO PRN ×2 (04:03→08:57)
--- NOTE | 2021-07-20 06:52 | Obstetrical Progress Note ---
Date of Service July 20, 2021 Assessment & Plan (1) SARS-CoV-2 positive: (2) Encounter for vaginal delivery: Doing well. ppd #1 routine. Would like d/c later tonight . Precautions given. Day #:: 1 Subjective Ambulation: ambulating normally Voiding: no voiding problems Passing Gas:: Yes Diet Tolerance:: regular diet Lochia:: Small Feeding Type:: breast feeding Physical Exam Constitutional WD/WN, vitals as above Cardiovascular Extremities: no calf tenderness and no edema Gastrointestinal (Abdomen) soft, nt, nd ff/nt at u Psychiatric A+Ox3, euthymic affect Results & Data ([facility]) Vital Signs (Past 12 Hours) Vital Signs Temp Pulse Resp BP Pulse Ox 07/20/21 04:08 36.6 C 73 16 128/82 98 07/19/21 23:11 36.7 C 65 12 128/83 99 07/19/21 19:30 36.6 C 77 16 121/75 97
[2021-07-20 07:13] LABS: Hematocrit (blood only) 34.9 % (37-47); Hemoglobin 11.2 g/dL (12.0-16.0)
[2021-07-20] MEDS ORDERED: PRENATAL VITAMIN 1 TAB PO SCH (08:00)
[2021-07-20] MEDS: DOCUSATE SODIUM 100 MG CAP PO SCH (08:59)
[2021-07-20] MEDS ORDERED: bisacodyL 5 MG TABEC PO SCH (20:00)
== END 2021-07-20 14:35 | disposition home or self-care (01) | DRG 805 ==
LOC: 4S1 06:05 → 4W 09:15 → 4N 16:15